=== PATIENT | male | born 1950 | race Caucasian/White ===

== ENCOUNTER 2019-01-14 17:32 | Emergency (ER) | payer BC, MEDICARE, OTHER ==
[~2019-01-14] VITALS: Ht 170.2 cm; Wt 99.8 kg
--- NOTE | 2019-01-14 17:52 | Emergency Room Report ---
History of Present Illness General Chief Complaint: Chest tightness Source: Patient Present Illness HPI Patient is a 68-year-old male presented after increased chest tightness. Patient reports of increased difficulty with breathing which gradual onset over the past 1 day. Patient reports of increased orthopnea he denies any increased leg swelling. He reports having prior history of reactive airway disease and had previously been taking albuterol as well as steroids. He denies any prior cardiac history.Patient reports having increased nonproductive cough. He reports onset of symptoms last night. He denies being a smoker. Allergies: Coded Allergies: No Known Allergies (Unverified , 06/06/12) Patient History Past Medical History: see triage record Reviewed Nursing Documentation: PMH: Agreed; PSxH: Agreed Nursing Documentation-PMH Past Medical History: No Stated History Review of Systems All Other Systems: negative except mentioned in HPI Physical Exam Vital Signs Date Time Temp Pulse Resp B/P (MAP) Pulse Ox O2 Delivery O2 Flow Rate FiO2 01/14/19 17:39 98.6 109 18 173/87 92 Room Air Sp02 EP Interpretation: reviewed, normal General Appearance: alert, GCS 15, non-toxic, obese, Chronically Ill Head: atraumatic ENT: normal ENT inspection, hearing grossly normal, normal voice Neck: normal inspection, full range of motion, supple, no bony tend Respiratory: normal inspection, no respiratory distress, no retraction, wheezing Cardiovascular #1: regular rate, rhythm, edema Gastrointestinal: normal inspection, normal bowel sounds, non tender, soft, no guarding, no hernia Musculoskeletal: normal inspection, back normal, normal range of motion Neurologic: normal inspection, alert, oriented x3, responsive, business area director III-XII nml as tested, speech normal Psychiatric: normal inspection, judgement/insight normal, mood/affect normal Skin: normal inspection, normal color, no rash Medical Decision Making Diagnostic Impression: Primary Impression: Bronchitis ER Course Patient presented for shortness of breath. Differential included but was not limited to anemia, pneumonia, pneumothorax, myocardial infarction, pericardial effusion, congestive heart failure, acidosis. Because of complexity of patient' s case laboratory testing and imaging studies were ordered.Patient's laboratory testing was notable for minimally elevated white blood count as well as negative troponin. Given the patient's constant chest tightness for the past 24 hours this tightness is unlikely to represent ACS. Patient was offered admission which he declined. Patient was given steroids as well as magnesium and breathing treatments with improvement in respiratory difficulty. Patient was advised outpatient cardiac workup. He was advised to return if he changed his mind or if symptoms worsened. Labs Test 01/14/19 17:55 White Blood Count 12.3 K/UL (4.8-10.8) Red Blood Count 5.00 M/UL (4.70-6.10) Hemoglobin 14.6 G/DL (14.2-18.0) Hematocrit 45.8 % (42.0-52.0) Mean Corpuscular Volume 92 FL (80-99) Mean Corpuscular Hemoglobin 29.3 PG (27.0-31.0) Mean Corpuscular Hemoglobin Concent 32.0 G/DL (32.0-36.0) Red Cell Distribution Width 12.7 % (11.6-14.8) Platelet Count 303 K/UL (150-450) Mean Platelet Volume 6.2 FL (6.5-10.1) Neutrophils (%) (Auto) 76.2 % (45.0-75.0) Lymphocytes (%) (Auto) 11.7 % (20.0-45.0) Monocytes (%) (Auto) 8.5 % (1.0-10.0) Eosinophils (%) (Auto) 2.4 % (0.0-3.0) Basophils (%) (Auto) 1.2 % (0.0-2.0) Sodium Level 142 MMOL/L (136-145) Potassium Level 4.0 MMOL/L (3.5-5.1) Chloride Level 104 MMOL/L (98-107) Carbon Dioxide Level 29 MMOL/L (21-32) Anion Gap 9 mmol/L (5-15) Blood Urea Nitrogen 16 mg/dL (7-18) Creatinine 1.1 MG/DL (0.55-1.30) Estimat Glomerular Filtration Rate > 60 mL/min (>60) Glucose Level 113 MG/DL (74-106) Calcium Level 10.5 MG/DL (8.5-10.1) Total Bilirubin 0.4 MG/DL (0.2-1.0) Aspartate Amino Transf (AST/SGOT) 31 U/L (15-37) Alanine Aminotransferase (ALT/SGPT) 36 U/L (12-78) Alkaline Phosphatase 91 U/L (46-116) Total Creatine Kinase 474 U/L (26-308) Creatine Kinase MB 5.7 NG/ML (0.0-3.6) Creatine Kinase MB Relative Index 1.2 Troponin I 0.000 ng/mL (0.000-0.056) C-Reactive Protein, Quantitative 1.6 mg/dL (0.00-0.90) Pro-B-Type Natriuretic Peptide 33 pg/mL (0-125) Total Protein 7.8 G/DL (6.4-8.2) Albumin 3.5 G/DL (3.4-5.0) Globulin 4.3 g/dL Albumin/Globulin Ratio 0.8 (1.0-2.7) Lipase 185 U/L (73-393) EKG Diagnostic Results Rate: normal Rhythm: NSR ST Segments: no acute changes Last Vital Signs Date Time Temp Pulse Resp B/P (MAP) Pulse Ox O2 Delivery O2 Flow Rate FiO2 01/14/19 17:39 98.6 109 18 173/87 92 Room Air Status: improved Disposition: HOME, SELF-CARE Condition: Improved Scripts Albuterol Sulfate* (ALBUTEROL SULFATE MDI*) 8.5 Gm Hfa.aer.ad 2 PUFF INH Q6H, #1 EA 0 Refills Prov: Pepe David MD 01/14/19 Prednisone* (PREDNISONE*) 20 Mg Tablet 60 MG ORAL DAILY, #12 TAB Prov: Pepe David MD 01/14/19 Pepe David MD Jan 14, 2019 17:52
[2019-01-14] MEDS ORDERED: Albuterol/Ipratropium 3ml neb HHN ONE ×2 (18:00→19:00)
[2019-01-14 18:03] VITALS: BP 155/78
[2019-01-14 18:11] LABS: BASOPHILS % (AUTO) 1.2 % (0.0-2.0); EOSINOPHILS % (AUTO) 2.4 % (0.0-3.0); HEMATOCRIT 45.8 % (42.0-52.0); HEMOGLOBIN 14.6 G/DL (14.2-18.0); LYMPHOCYTES % (AUTO) 11.7 % (20.0-45.0); MEAN CORPUSCULAR VOLUME 92 FL (80-99); MONOCYTES % (AUTO) 8.5 % (1.0-10.0); NEUTROPHILS % (AUTO) 76.2 % (45.0-75.0); PLATELET COUNT 303 K/UL (150-450); RED CELL DISTRIBUTION WIDTH 12.7 % (11.6-14.8); WHITE BLOOD COUNT 12.3 K/UL (4.8-10.8)
[2019-01-14 18:28] LABS: ANION GAP 9 mmol/L (5-15); BLOOD UREA NITROGEN 16 mg/dL (7-18); CALCIUM 10.5 MG/DL (8.5-10.1); CARBON DIOXIDE 29 MMOL/L (21-32); CHLORIDE 104 MMOL/L (98-107); CREATININE 1.1 MG/DL (0.55-1.30); SODIUM 142 MMOL/L (136-145)
[2019-01-14 18:41] LABS: ALANINE AMINOTRANSFERASE 36 U/L (12-78); ALBUMIN 3.5 G/DL (3.4-5.0); ALBUMIN/GLOBULIN RATIO 0.8 (1.0-2.7); ALKALINE PHOSPHATASE 91 U/L (46-116); ASPARTATE AMINO TRANSFERASE 31 U/L (15-37); BILIRUBIN,TOTAL 0.4 MG/DL (0.2-1.0); CKMB 5.7 NG/ML (0.0-3.6); CREATINE KINASE 474 U/L (26-308)
[2019-01-14] MEDS ORDERED: PREDNISONE20 MG ORAL (19:51)
[2019-01-14] MEDS ORDERED: ALBUTEROL SULF8.5 GM INH (19:51)
[2019-01-14 20:23] VITALS: BP 146/88
--- NOTE | 2019-01-15 09:52 | Diagnostic Imaging Report ---
Indication: Shortness of breath Technique: One view of the chest Comparison: none Findings: The lungs and pleural spaces are clear. The heart size is normal. Impression: Negative
--- NOTE | 2019-01-15 12:27 | Cardiology Report ---
APPROVED REPORT EKG Measurement Heart [id number] AR 148P [id number] Sinus tachycardia Right axis deviation Low voltage QRS Abnormal ECG
--- NOTE | 2019-01-15 20:30 | Consultation ---
DATE OF CONSULTATION: PULMONARY CONSULTATION/INTERNAL MEDICINE CONSULTATION HISTORY OF PRESENT ILLNESS: This is a 68-year-old male who came to the hospital with chest tightness. He was seen in the emergency room. He has no known medical illnesses especially no cardiac history. He does have a history of questionable asthma/COPD and has been taking albuterol and steroids. The patient was seen with cough and congestion. Initially, he was seen and stated for admission however. The patient denies any headaches, hematemesis, melena, or hematochezia. PHYSICAL EXAMINATION: GENERAL: Revealed an 68-year-old male. HEENT: Unremarkable. LUNGS: Clear breath sounds bilaterally. There are a few rhonchi. ABDOMEN: Soft. LABORATORY AND DIAGNOSTIC DATA: I have not been able to at the chest x-ray, not clear if it is done initially, we will attempt to review medical record for the same. White count is 12,000, remaining labs unremarkable. IMPRESSION: 1. Bronchitis. 2. Exacerbation of asthma. DISCUSSION: Agree with discharge on oral prednisone and albuterol. Outpatient follow up. Felix Whitfield M.D. DR: Denis JOB#: [id number] CC:
== END 2019-01-14 20:23 | disposition home or self-care (01) ==
LOC: EMR 19:45
DX: J20.9 Acute bronchitis, unspecified (principal); E66.9 Obesity, unspecified; J45.901 Unspecified asthma with (acute) exacerbation; R00.0 Tachycardia, unspecified
CPT/HCPCS: 36415; 71045; 80053; 82550; 82553; 83690; 83880; 84484; 85025; 86140; 93005; 94640; 96365; 99284; J7512; J7620